=== PATIENT | female | born 2000 ===

== ENCOUNTER 2019-10-29 07:50 | Emergency (ER) | payer OTHER ==
[~2019-10-29] VITALS: Ht 167.6 cm; Wt 108.0 kg
[2019-10-29] MEDS ORDERED: METFORMIN HCL500 M3 PO (08:19)
== END 2019-10-29 10:09 | disposition home or self-care (01) ==
LOC: ER 07:50
DX: G43.909 Migraine, unspecified, not intractable, without status migrainosus (principal)

== ENCOUNTER 2023-01-09 18:53 | Emergency (ER) | payer OTHER ==
[~2023-01-09] VITALS: Ht 165.1 cm; Wt 104.3 kg
[~2023-01-09 18:53] MED LIST: METFORMIN HCL500 M3 PO
[2023-01-09] MEDS ORDERED: SPIRONOLACTONE50 MG PO (19:27)
[2023-01-09] MEDS ORDERED: SYMBICORT 16010.2 GM IH (19:28)
== END 2023-01-09 21:50 | disposition home or self-care (01) ==
LOC: ER 18:53 → EDBD 18:55 → ER 18:55
DX: J06.9 Acute upper respiratory infection, unspecified (principal)